=== PATIENT | female | born 1995 | race Two or more races ===

== ENCOUNTER 2020-08-13 14:13 | Emergency (ER) | payer OTHER ==
[~2020-08-13] VITALS: Ht 157.5 cm; Wt 45.4 kg
[2020-08-13] MEDS ORDERED: MYCOPHENOL200 MG/1 M (14:46)
[2020-08-13] MEDS ORDERED: CHILDREN'S ASPI81 MG (14:48)
== END 2020-08-13 19:06 | disposition home or self-care (01) ==
LOC: ER 14:13
DX: R10.2 Pelvic and perineal pain (principal); Z97.5 Presence of (intrauterine) contraceptive device

== ENCOUNTER 2020-08-28 14:53 | Emergency (ER) | payer OTHER ==
[~2020-08-28] VITALS: Ht 162.6 cm; Wt 49.9 kg
[~2020-08-28 14:53] MED LIST: CHILDREN'S ASPI81 MG; MYCOPHENOL200 MG/1 M
== END 2020-08-28 20:00 | disposition home or self-care (01) ==
LOC: ER 14:53
DX: N39.0 Urinary tract infection, site not specified (principal); Z03.818 Encounter for observation for suspected exposure to other biological agents ruled out

== ENCOUNTER 2020-10-03 17:20 | Emergency (ER) | payer OTHER ==
[~2020-10-03] VITALS: Ht 157.5 cm; Wt 40.8 kg
== END 2020-10-03 23:25 ==
LOC: ER 17:20
DX: R07.89 Other chest pain (principal)

== ENCOUNTER 2021-01-25 12:33 | Emergency (ER) | payer OTHER ==
[~2021-01-25] VITALS: Ht 157.5 cm; Wt 88.5 kg
[2021-01-25] MEDS ORDERED: ULTRAM50 MG (12:47)
== END 2021-01-25 21:36 | disposition home or self-care (01) ==
LOC: ER 12:33
DX: M41.116 Juvenile idiopathic scoliosis, lumbar region (principal)

== ENCOUNTER 2021-09-16 15:09 | Emergency (ER) | payer OTHER ==
[~2021-09-16] VITALS: Ht 157.5 cm; Wt 44.5 kg
[~2021-09-16 15:09] MED LIST changes: +ULTRAM50 MG
== END 2021-09-16 19:40 | disposition home or self-care (01) ==
LOC: ER 15:09
DX: B34.9 Viral infection, unspecified (principal); R11.10 Vomiting, unspecified; R50.9 Fever, unspecified; Z20.822 Contact with and (suspected) exposure to COVID-19

== ENCOUNTER 2022-03-13 17:12 | Inpatient (IN) | payer OTHER ==
[~2022-03-13] VITALS: Ht 157.5 cm; Wt 55.3 kg
[2022-03-13] MEDS ORDERED: PRENATAL GUMMI1 EACH PO (23:54)
[2022-03-13] MEDS ORDERED: PLAQUENIL PO (23:55)
[2022-03-13] MEDS ORDERED: DIALYVITE 800-1 EACH PO (23:55)
[2022-03-14] MEDS ORDERED: HYDROXYCHLOROQ200 MG (11:33)
== END 2022-03-15 12:45 | disposition home or self-care (01) | DRG 832 ==
LOC: LDR 17:12
PROVIDERS: ADMIT Specialist; ATTEND Specialist
PROC: 4A1HXCZ Monitoring of Products of Conception, Cardiac Rate, External Approach (ICD-10-PCS; principal; 2022-03-13)
DX: O60.03 Preterm labor without delivery, third trimester (principal); O99.113 Other diseases of the blood and blood-forming organs and certain disorders involving the immune mechanism complicating pregnancy, third trimester; M32.8 Other forms of systemic lupus erythematosus; O23.40 Unspecified infection of urinary tract in pregnancy, unspecified trimester; O99.013 Anemia complicating pregnancy, third trimester; D64.9 Anemia, unspecified; Z3A.31 31 weeks gestation of pregnancy; Z20.822 Contact with and (suspected) exposure to COVID-19

== ENCOUNTER 2022-03-23 15:26 | Inpatient (IN) | payer OTHER ==
[~2022-03-23] VITALS: Ht 157.5 cm; Wt 55.3 kg
[~2022-03-23 15:26] MED LIST changes: +DIALYVITE 800-1 EACH PO; +HYDROXYCHLOROQ200 MG; +PLAQUENIL PO; +PRENATAL GUMMI1 EACH PO
[2022-03-23] MEDS ORDERED: NIFEDIPINE20 MG PO (20:30)
[2022-03-23] MEDS ORDERED: INTEGRA PLUS C1 EACH PO (20:30)
== END 2022-03-25 14:23 | disposition home or self-care (01) | DRG 831 ==
LOC: LDR 15:26
PROVIDERS: ADMIT Specialist; ATTEND Specialist
PROC: 4A1HXCZ Monitoring of Products of Conception, Cardiac Rate, External Approach (ICD-10-PCS; principal; 2022-03-23)
PROC: 30233N1 Transfusion of Nonautologous Red Blood Cells into Peripheral Vein, Percutaneous Approach (ICD-10-PCS; 2022-03-24)
DX: O99.013 Anemia complicating pregnancy, third trimester (principal); O46.093 Antepartum hemorrhage with other coagulation defect, third trimester; O23.43 Unspecified infection of urinary tract in pregnancy, third trimester; N39.0 Urinary tract infection, site not specified; D50.0 Iron deficiency anemia secondary to blood loss (chronic); Z3A.33 33 weeks gestation of pregnancy; Z20.822 Contact with and (suspected) exposure to COVID-19

== ENCOUNTER 2022-04-21 04:14 | Inpatient (IN) | payer OTHER ==
[~2022-04-21] VITALS: Ht 157.5 cm; Wt 3.2 kg
[~2022-04-21 04:14] MED LIST changes: +INTEGRA PLUS C1 EACH PO; +NIFEDIPINE20 MG PO
== END 2022-04-23 13:07 | disposition home or self-care (01) | DRG 788 ==
LOC: OB/GYN 04:14 → LDR 04:14 → OB/GYN 10:40
PROVIDERS: ADMIT Specialist; ATTEND Specialist
PROC: 4A1HXCZ Monitoring of Products of Conception, Cardiac Rate, External Approach (ICD-10-PCS; 2022-04-21)
PROC: 10D00Z1 Extraction of Products of Conception, Low, Open Approach (ICD-10-PCS; principal; 2022-04-21 08:30)
DX: O32.2XX0 Maternal care for transverse and oblique lie, not applicable or unspecified (principal); O69.81X0 Labor and delivery complicated by cord around neck, without compression, not applicable or unspecified; Z3A.37 37 weeks gestation of pregnancy; Z37.0 Single live birth; Z20.822 Contact with and (suspected) exposure to COVID-19